=== PATIENT | male | born 1970 | race Caucasian/White ===

== ENCOUNTER 2021-01-09 21:27 | Emergency (ER) | payer OTHER | END 2021-01-09 23:03 | LOC: M.ERS 21:27 | DX: Z02.89 Encounter for other administrative examinations (principal) ==

== ENCOUNTER 2021-01-27 03:42 | Emergency (ER) | payer OTHER | END 2021-01-27 04:49 | LOC: M.ERS 03:42 | DX: Z02.89 Encounter for other administrative examinations (principal) ==